=== PATIENT | male | born 1960 | race Asian ===

== ENCOUNTER 2017-02-09 12:49 | Inpatient (IN) | payer MEDICAID, OTHER ==
[~2017-02-09] VITALS: Ht 170.2 cm; Wt 72.6 kg
[~2017-02-09 12:49] MED LIST: COLACE100 MG ORAL; FUROSEMIDE20 M1 ORAL; LIBRIUM25 MG ORAL; NKM; NORVASC5 MG ORAL; PEPCID40 MG PO; PROZAC20 MG ORAL; VITAMIN B-1100 MG ORAL; ZOFRAN4 MG ORAL
[2017-02-09 12:56] VITALS: BP 158/107
--- NOTE | 2017-02-09 13:41 | Emergency Room Report ---
History of Present Illness General Chief Complaint: Alcohol Intoxication Source: Patient Present Illness HPI Patient was brought in by paramedics and police department Patient was found to be intoxicated also reports of doing cocaine Police Department that the patient was danger to himself and brought the patient in for further psychiatric evaluation However while here the patient requesting Dilaudid Reports that he has pancreatitis was drinking earlier and has increased pain at this time Denies any vomiting or diarrhea as any fevers or chills At this time denies any suicidal homicidal thoughts Allergies: Coded Allergies: No Known Allergies (Unverified , 10/25/14) Patient History Past Medical History: see triage record Pertinent Family History: none Reviewed Nursing Documentation: PMH: Agreed, PSxH: Agreed Nursing Documentation-PMH Past Medical History: No Stated History Hx Cardiac Problems: No Hx Cancer: No Hx Gastrointestinal Problems: Yes - Pancreatitis Hx Neurological Problems: No Review of Systems All Other Systems: negative except mentioned in HPI Physical Exam Vital Signs Date Time Temp Pulse Resp B/P (MAP) Pulse Ox O2 Delivery O2 Flow Rate FiO2 02/09/17 12:46 98.1 124 16 143/89 100 Room Air Sp02 EP Interpretation: reviewed, normal General Appearance: no apparent distress Head: normocephalic, atraumatic ENT: hearing grossly normal, normal pharynx Neck: supple Respiratory: lungs clear Cardiovascular #1: normal peripheral pulses, regular rate, rhythm Gastrointestinal: non tender - However the patient subjectively points diffusely in the upper abdomen and right upper quadrant, soft Genitourinary: no CVA tenderness Musculoskeletal: normal inspection Neurologic: alert, oriented x3, responsive - Patient has some slurring of his speech, which is possibly related to the alcohol ingestion Psychiatric: no suicidal/homicidal ideation Skin: no rash Lymphatic: no adenopathy Medical Decision Making ER Course Patient has baseline blood work initiated Evaluation for possible pancreatitis also initiated Patient signed out to my oncoming physician Dr. Reed for reevaluation and final disposition Last Vital Signs Date Time Temp Pulse Resp B/P (MAP) Pulse Ox O2 Delivery O2 Flow Rate FiO2 02/09/17 12:46 98.1 124 16 143/89 100 Room Air MELINDA MAIER D.O. Feb 09, 2017 13:41
[2017-02-09 13:54] LABS: HEMOGLOBIN 16.8 G/DL (14.2-18.0); MEAN CORPUSCULAR VOLUME 99 FL (80-99); PLATELET COUNT 86 K/UL (150-450); RED BLOOD COUNT 5.25 M/UL (4.70-6.10); RED CELL DISTRIBUTION WIDTH 12.9 % (11.6-14.8); WHITE BLOOD COUNT 8.7 K/UL (4.8-10.8)
[2017-02-09 14:10] LABS: ALANINE AMINOTRANSFERASE 94 U/L (12-78); ALBUMIN 3.7 G/DL (3.4-5.0); ALKALINE PHOSPHATASE 62 U/L (46-116); ANION GAP 24 mmol/L (5-15); ASPARTATE AMINO TRANSFERASE 257 U/L (15-37); BILIRUBIN,TOTAL 1.3 MG/DL (0.2-1.0); BLOOD UREA NITROGEN 22 mg/dL (7-18); CALCIUM 8.5 MG/DL (8.5-10.1); CARBON DIOXIDE 19 MMOL/L (21-32); CHLORIDE 95 MMOL/L (98-107); POTASSIUM 4.3 MMOL/L (3.5-5.1); SODIUM 138 MMOL/L (136-145)
[2017-02-09 14:16] LABS: BILIRUBIN,DIRECT 0.7 MG/DL (0.0-0.3)
[2017-02-09] MEDS ORDERED: TRAZODONE HCL150 MG ORAL (14:31)
--- NOTE | 2017-02-09 14:52 | Diagnostic Imaging Report ---
Indication: Dyspnea Comparison: None A single view chest radiograph was obtained. Findings: Mild basilar atelectasis versus scarring demonstrated. Aorta is ectatic. Heart size is normal. Bones are unremarkable. Impression: Linear densities likely atelectasis or scarring at the lung bases mild in degree
[2017-02-09 15:00] VITALS: BP 150/89
[2017-02-09] MEDS ORDERED: Morphine Sulfate 4mg/ml Inj IVP ONE (15:15)
[2017-02-09] MEDS ORDERED: Zolpidem 5mg tab ORAL PRN (16:45)
[2017-02-09] MEDS ORDERED: Mylanta II UD 30ml ORAL PRN (16:45)
[2017-02-09] MEDS ORDERED: Miralax 17gm pkt ORAL PRN (16:45)
[2017-02-09] MEDS ORDERED: chlordiazePOXIDE 25mg Cap ORAL PRN (16:45)
[2017-02-09] MEDS ORDERED: LORazepam Inj 2mg/ml 1ml IV PRN (16:45)
[2017-02-09 16:53] VITALS: BP 147/85
[2017-02-09] MEDS: Folic Acid 1 MG, Magnesium Sulfate 2,000 MG, Multivitamin - 12 Injection 10 ML in NS w/... IV SCH (17:48)
[2017-02-09] MEDS: Thiamine 100mg in D5W 55ml IVPB SCH (17:49)
[2017-02-09] MEDS ORDERED: Thiamine HCl 100 MG, Folic Acid 1 MG, Magnesium Sulfate 2,000 MG, Multivitamin - 12 Inj... IV SCH ×5 (18:00)
[2017-02-09 20:00] VITALS: BP 148/85
[2017-02-09] MEDS: Morphine Sulfate 4mg/ml Inj IVP PRN (20:34)
[2017-02-09] MEDS: TraZODone 50mg tab ORAL SCH (20:35)
[2017-02-09] MEDS ORDERED: Heparin 5000 units/ml inj SUBQ SCH (21:00)
[2017-02-10] VITALS: BP 159/91
[2017-02-10] MEDS: Morphine Sulfate 4mg/ml Inj IVP PRN ×6 (00:34→22:11)
--- NOTE | 2017-02-10 00:37 | Consultation ---
History of Present Illness General Date patient seen: Feb 09, 2017 Chief Complaint: Alcohol Intoxication Present Illness HPI the pt was intoxicated during the eval the pt was cracking jokes and started laughing when I asked if he was suicidal the pt was asking for morphine the pt was making inappropriate comments and was loud at time. i evaluated him in er Allergies: Coded Allergies: No Known Allergies (Unverified , 10/25/14) Medication History Scheduled Amlodipine Besylate (Norvasc), 5 MG ORAL DAILY, (Reported) Chlordiazepoxide (Chlordiazepoxide HCl), 25 MG ORAL Q6HR, (Reported) Docusate Sodium* (Colace*), 100 MG ORAL TWICE A DAY, (Reported) Fluoxetine Hcl* (Prozac*), 20 MG ORAL DAILY, (Reported) Furosemide* (Lasix*), 20 MG ORAL DAILY, (Reported) No Known Medications* (NKM - No Known Medications*), 0 ., (Reported) Thiamine Hcl* (Vitamin B-1*), 100 MG ORAL DAILY, (Reported) Trazodone* (Trazodone*), 50 MG ORAL BEDTIME, (Reported) Patient History History Provided By: Patient, Medical Record, PMD Healthcare decision maker Resuscitation status Full Code Advanced Directive on File Past Medical/Surgical History Past Medical/Surgical History: (1) Abdominal pain (2) ETOH abuse (3) Abdominal pain (4) etoh hepatitis (5) Abdominal pain (6) ETOH abuse (7) Elevated LFTs (8) Fatty liver (9) Acute alcoholic intoxication (10) Pancreatitis (11) ETOH abuse Review of Systems Psychiatric: Reports: prior hx, anxiety, emotional problems Physical Exam General Appearance: WD/WN, no apparent distress, alert, agitated, cachetic Neurologic: alert, oriented x 3, responsive, normal mood/affect Last 24 Hour Vital Signs Date Time Temp Pulse Resp B/P (MAP) Pulse Ox O2 Delivery O2 Flow Rate FiO2 02/09/17 20:00 97.5 116 21 148/85 97 Room Air 02/09/17 16:53 97.6 110 16 147/85 95 Room Air 02/09/17 16:53 98.0 110 16 147/85 95 Room Air 02/09/17 16:05 97.6 02/09/17 15:00 98.0 113 18 150/89 98 Room Air 02/09/17 12:56 98.1 127 18 158/107 95 Room Air 02/09/17 12:46 98.1 124 16 143/89 100 Room Air Laboratory Tests Test 02/09/17 13:30 02/09/17 13:35 White Blood Count 8.7 K/UL (4.8-10.8) Red Blood Count 5.25 M/UL (4.70-6.10) Hemoglobin 16.8 G/DL (14.2-18.0) Hematocrit 52.0 % (42.0-52.0) Mean Corpuscular Volume 99 FL (80-99) Mean Corpuscular Hemoglobin 32.0 PG (27.0-31.0) H Mean Corpuscular Hemoglobin Concent 32.3 G/DL (32.0-36.0) Red Cell Distribution Width 12.9 % (11.6-14.8) Platelet Count 86 K/UL (150-450) L Mean Platelet Volume 6.2 FL (6.5-10.1) L Neutrophils (%) (Auto) % (45.0-75.0) Lymphocytes (%) (Auto) % (20.0-45.0) Monocytes (%) (Auto) % (1.0-10.0) Eosinophils (%) (Auto) % (0.0-3.0) Basophils (%) (Auto) % (0.0-2.0) Differential Total Cells Counted 100 Neutrophils % (Manual) 88 % (45-75) H Lymphocytes % (Manual) 10 % (20-45) L Monocytes % (Manual) 2 % (1-10) Eosinophils % (Manual) 0 % (0-3) Basophils % (Manual) 0 % (0-2) Band Neutrophils 0 % (0-8) Platelet Estimate Decreased L Platelet Morphology Normal Red Blood Cell Morphology Normal Sodium Level 138 MMOL/L (136-145) Potassium Level 4.3 MMOL/L (3.5-5.1) Chloride Level 95 MMOL/L (98-107) L Carbon Dioxide Level 19 MMOL/L (21-32) L Anion Gap 24 mmol/L (5-15) H Blood Urea Nitrogen 22 mg/dL (7-18) H Creatinine 1.0 MG/DL (0.55-1.30) Estimat Glomerular Filtration Rate > 60 mL/min (>60) Glucose Level 132 MG/DL (74-106) H Calcium Level 8.5 MG/DL (8.5-10.1) Total Bilirubin 1.3 MG/DL (0.2-1.0) H Direct Bilirubin 0.7 MG/DL (0.0-0.3) H Aspartate Amino Transf (AST/SGOT) 257 U/L (15-37) H Alanine Aminotransferase (ALT/SGPT) 94 U/L (12-78) H Alkaline Phosphatase 62 U/L (46-116) Total Protein 7.4 G/DL (6.4-8.2) Albumin 3.7 G/DL (3.4-5.0) Globulin 3.7 g/dL Albumin/Globulin Ratio 1.0 (1.0-2.7) Lipase 633 U/L (73-393) H Salicylates Level 2.8 ug/mL (2.8-20) Acetaminophen Level < 2 MCG/ML (10-30) L Serum Alcohol 372 mg/dL Urine Opiates Screen Negative (NEGATIVE) Urine Barbiturates Screen Negative (NEGATIVE) Phencyclidine (PCP) Screen Negative (NEGATIVE) Urine Amphetamines Screen Negative (NEGATIVE) Urine Benzodiazepines Screen Positive (NEGATIVE) H Urine Cocaine Screen Negative (NEGATIVE) Urine Marijuana (THC) Screen Negative (NEGATIVE) Height (Feet): 5 Height (Inches): 7.00 Weight (Pounds): 160 Medications Current Medications Medications (Trade) Dose Ordered Sig/Sally Route PRN Reason Start Time Stop Time Status Last Admin Dose Admin Acetaminophen (Tylenol) 650 mg Q4H PRN ORAL fever 02/09/17 16:45 03/11/17 16:44 Al Hydroxide/Mg Hydroxide (Mylanta II) 30 ml Q6H PRN ORAL dyspepsia 02/09/17 16:45 03/11/17 16:44 Amlodipine Besylate (Norvasc) 5 mg DAILY ORAL 02/10/17 09:00 03/12/17 08:59 Chlordiazepoxide (Librium) 25 mg Q6H PRN ORAL Agitation 02/09/17 16:45 02/16/17 16:44 Dextrose (Dextrose 50%) STAT PRN IV Hypoglycemia 02/09/17 16:45 03/11/17 16:44 Fluoxetine HCl (PROzac) 20 mg DAILY ORAL 02/10/17 09:00 03/12/17 08:59 Folic Acid 1 mg/ Magnesium Sulfate 2000 mg/ Multivitamins 10 ml/Sodium Chloride 1,014.2 ml @ 124.876 mls/hr Q24H IV 02/09/17 18:00 03/11/17 17:59 02/09/17 17:48 Lorazepam (Ativan 2mg/ml 1ml) 2 mg Q1H PRN IV seizures 02/09/17 16:45 02/16/17 16:44 Morphine Sulfate (Morphine Sulfate) 4 mg Q4H PRN IVP For Pain 02/09/17 17:15 02/16/17 17:14 02/09/17 20:34 Ondansetron HCl (Zofran) 4 mg Q6H PRN IVP Nausea & Vomiting 02/09/17 16:45 03/11/17 16:44 02/09/17 18:31 Polyethylene Glycol (Miralax) 17 gm HSPRN PRN ORAL Constipation 02/09/17 16:45 03/11/17 16:44 Thiamine HCl 100 mg/Dextrose 56 ml @ 112 mls/hr Q24H IVPB 02/09/17 18:00 03/11/17 17:59 02/09/17 17:49 Trazodone HCl (Desyrel) 50 mg BEDTIME ORAL 02/09/17 21:00 03/11/17 20:59 02/09/17 20:35 Zolpidem Tartrate (Ambien) 5 mg HSPRN PRN ORAL Insomnia 02/09/17 16:45 02/16/17 16:44 Assessment/Plan Status: progressing Assessment/Plan alcohol depencence -the pts presentation is in rosendo context of alcohol -will reassess tomorrow -Yolie Rubi M.D. Feb 10, 2017 00:37
[2017-02-10 04:00] VITALS: BP 151/81
[2017-02-10 07:00] LABS: HEMATOCRIT 39.8 % (42.0-52.0); HEMOGLOBIN 13.8 G/DL (14.2-18.0); MEAN CORPUSCULAR VOLUME 96 FL (80-99); PLATELET COUNT 49 K/UL (150-450); RED BLOOD COUNT 4.14 M/UL (4.70-6.10); RED CELL DISTRIBUTION WIDTH 12.8 % (11.6-14.8); WHITE BLOOD COUNT 5.5 K/UL (4.8-10.8)
[2017-02-10 07:10] LABS: ALANINE AMINOTRANSFERASE 72 U/L (12-78); ALBUMIN 3.2 G/DL (3.4-5.0); ALBUMIN/GLOBULIN RATIO 1.1 (1.0-2.7); ALKALINE PHOSPHATASE 51 U/L (46-116); ANION GAP 5 mmol/L (5-15); ASPARTATE AMINO TRANSFERASE 140 U/L (15-37); BILIRUBIN,TOTAL 1.6 MG/DL (0.2-1.0); BLOOD UREA NITROGEN 16 mg/dL (7-18); CALCIUM 7.9 MG/DL (8.5-10.1); CARBON DIOXIDE 32 MMOL/L (21-32); CHLORIDE 100 MMOL/L (98-107); CREATININE 0.8 MG/DL (0.55-1.30); POTASSIUM 4.6 MMOL/L (3.5-5.1); SODIUM 137 MMOL/L (136-145)
[2017-02-10 07:17] LABS: BILIRUBIN,DIRECT 0.7 MG/DL (0.0-0.3)
[2017-02-10 08:15] VITALS: BP 167/102
[2017-02-10] MEDS: Promethazine/Codeine 5ml UD ORAL PRN ×2 (11:14→19:52)
--- NOTE | 2017-02-10 11:33 | GI Initial Consult Note ---
History of Present Illness General Date patient seen: Feb 10, 2017 Time patient seen: 11:24 Reason for Hospitalization: Alcohol Intoxication Referring physician: GUERO PICHARDO Reason for Consultation: ALCOHOLIC PANCREATITIS Present Illness HPI Patient was brought in by paramedics and police department Patient was found to be intoxicated also reports of doing cocaine Police Department that the patient was danger to himself and brought the patient in for further psychiatric evaluation However while here the patient requesting Dilaudid Reports that he has pancreatitis was drinking earlier and has increased pain at this time Denies any vomiting or diarrhea as any fevers or chills At this time denies any suicidal homicidal thoughts GI consulted for pancreatitis. HPI as noted above. Pt seen on floor, awake A& Ox4 noted with tremors and dry coughing. Per the patient, he has history of ETOH abuse drinks appromixately 4 pints daily x 30 days on his last binge. Pt states he has had an addiction for over 3 years due to his personal life problems. He presents today with low platelets, transaminitis, elevated lipase and elevated serum alcohol levels 372. No history of endoscopic/colonoscopy. Home Meds Reported Medications Trazodone* (TRAZODONE*) 150 Mg Tablet, 50 MG ORAL BEDTIME, TAB 02/09/17 Thiamine Hcl* (VITAMIN B-1*) 100 Mg Tablet, 100 MG ORAL DAILY, TAB 0 Refills 11/20/14 Fluoxetine Hcl* (PROZAC*) 20 Mg Capsule, 20 MG ORAL DAILY, CAP 11/20/14 Amlodipine Besylate (Norvasc) 5 Mg Tab, 5 MG ORAL DAILY, TAB 11/20/14 Furosemide* (LASIX*) 20 Mg Tablet, 20 MG ORAL DAILY, TAB 11/20/14 Docusate Sodium* (COLACE*) 100 Mg Capsule, 100 MG ORAL TWICE A DAY, CAP 11/20/14 Chlordiazepoxide (Chlordiazepoxide HCl) 25 Mg Cap, 25 MG ORAL Q6HR, #15 CAP 0 Refills 11/20/14 No Known Medications* (NKM - No Known Medications*) ., 0 ., 0 Refills 10/25/14 Med list reviewed/reconciled: Yes Allergies: Coded Allergies: No Known Allergies (Unverified , 10/25/14) Patient History History Provided By: Patient PMH Narrative Past Medical History: see triage record Pertinent Family History: none Reviewed Nursing Documentation: PMH: Agreed, PSxH: Agreed Nursing Documentation-PMH Past Medical History: No Stated History Hx Cardiac Problems: No Hx Cancer: No Hx Gastrointestinal Problems: Yes - Pancreatitis Hx Neurological Problems: No Social History: Reports: alcohol use Review of Systems All Other Systems: negative except mentioned in HPI Physical Exam Vital Signs Date Time Temp Pulse Resp B/P (MAP) Pulse Ox O2 Delivery O2 Flow Rate FiO2 02/09/17 12:46 98.1 124 16 143/89 100 Room Air Sp02 EP Interpretation: reviewed, normal Labs Laboratory Tests Test 02/09/17 13:30 02/09/17 13:35 02/10/17 06:20 02/10/17 11:00 White Blood Count 8.7 K/UL (4.8-10.8) 5.5 K/UL (4.8-10.8) Red Blood Count 5.25 M/UL (4.70-6.10) 4.14 M/UL (4.70-6.10) L Hemoglobin 16.8 G/DL (14.2-18.0) 13.8 G/DL (14.2-18.0) L Hematocrit 52.0 % (42.0-52.0) 39.8 % (42.0-52.0) L Mean Corpuscular Volume 99 FL (80-99) 96 FL (80-99) Mean Corpuscular Hemoglobin 32.0 PG (27.0-31.0) H 33.3 PG (27.0-31.0) H Mean Corpuscular Hemoglobin Concent 32.3 G/DL (32.0-36.0) 34.7 G/DL (32.0-36.0) Red Cell Distribution Width 12.9 % (11.6-14.8) 12.8 % (11.6-14.8) Platelet Count 86 K/UL (150-450) L 49 K/UL (150-450) L Mean Platelet Volume 6.2 FL (6.5-10.1) L 6.6 FL (6.5-10.1) Neutrophils (%) (Auto) % (45.0-75.0) % (45.0-75.0) Lymphocytes (%) (Auto) % (20.0-45.0) % (20.0-45.0) Monocytes (%) (Auto) % (1.0-10.0) % (1.0-10.0) Eosinophils (%) (Auto) % (0.0-3.0) % (0.0-3.0) Basophils (%) (Auto) % (0.0-2.0) % (0.0-2.0) Differential Total Cells Counted 100 100 Neutrophils % (Manual) 88 % (45-75) H 85 % (45-75) H Lymphocytes % (Manual) 10 % (20-45) L 8 % (20-45) L Monocytes % (Manual) 2 % (1-10) 6 % (1-10) Eosinophils % (Manual) 0 % (0-3) 0 % (0-3) Basophils % (Manual) 0 % (0-2) 0 % (0-2) Band Neutrophils 0 % (0-8) 1 % (0-8) Platelet Estimate Decreased L Decreased L Platelet Morphology Normal Normal Red Blood Cell Morphology Normal Normal Sodium Level 138 MMOL/L (136-145) 137 MMOL/L (136-145) Potassium Level 4.3 MMOL/L (3.5-5.1) 4.6 MMOL/L (3.5-5.1) Chloride Level 95 MMOL/L (98-107) L 100 MMOL/L (98-107) Carbon Dioxide Level 19 MMOL/L (21-32) L 32 MMOL/L (21-32) Anion Gap 24 mmol/L (5-15) H 5 mmol/L (5-15) Blood Urea Nitrogen 22 mg/dL (7-18) H 16 mg/dL (7-18) Creatinine 1.0 MG/DL (0.55-1.30) 0.8 MG/DL (0.55-1.30) Estimat Glomerular Filtration Rate > 60 mL/min (>60) > 60 mL/min (>60) Glucose Level 132 MG/DL (74-106) H 167 MG/DL (74-106) H Calcium Level 8.5 MG/DL (8.5-10.1) 7.9 MG/DL (8.5-10.1) L Total Bilirubin 1.3 MG/DL (0.2-1.0) H 1.6 MG/DL (0.2-1.0) H Direct Bilirubin 0.7 MG/DL (0.0-0.3) H 0.7 MG/DL (0.0-0.3) H Aspartate Amino Transf (AST/SGOT) 257 U/L (15-37) H 140 U/L (15-37) H Alanine Aminotransferase (ALT/SGPT) 94 U/L (12-78) H 72 U/L (12-78) Alkaline Phosphatase 62 U/L (46-116) 51 U/L (46-116) Total Protein 7.4 G/DL (6.4-8.2) 6.1 G/DL (6.4-8.2) L Albumin 3.7 G/DL (3.4-5.0) 3.2 G/DL (3.4-5.0) L Globulin 3.7 g/dL 2.9 g/dL Albumin/Globulin Ratio 1.0 (1.0-2.7) 1.1 (1.0-2.7) Lipase 633 U/L (73-393) H Salicylates Level 2.8 ug/mL (2.8-20) Acetaminophen Level < 2 MCG/ML (10-30) L Serum Alcohol 372 mg/dL Urine Opiates Screen Negative (NEGATIVE) Urine Barbiturates Screen Negative (NEGATIVE) Phencyclidine (PCP) Screen Negative (NEGATIVE) Urine Amphetamines Screen Negative (NEGATIVE) Urine Benzodiazepines Screen Positive (NEGATIVE) H Urine Cocaine Screen Negative (NEGATIVE) Urine Marijuana (THC) Screen Negative (NEGATIVE) Prothrombin Time Pending Prothromb Time International Ratio Pending Activated Partial Thromboplast Time Pending General Appearance: well appearing, no apparent distress, alert Head: normocephalic EENT: PERRL/EOMI, normal ENT inspection Neck: supple Respiratory: normal breath sounds, no respiratory distress Cardiovascular: normal rate Gastrointestinal: normal inspection, non tender, soft, normal bowel sounds, non -distended Rectal: deferred Genitourinary: deferred Musculoskeletal: normal inspection, back normal Neurologic: normal inspection, alert, oriented x3, responsive Psychiatric: normal inspection, judgement/insight normal, memory normal Skin: normal inspection, normal color, no rash, warm/dry, palpation normal, well hydrated Lymphatic: normal inspection, no adenopathy Current Medications Current Medications Medications (Trade) Dose Ordered Sig/Sally Route PRN Reason Start Time Stop Time Status Last Admin Dose Admin Acetaminophen (Tylenol) 650 mg Q4H PRN ORAL fever 02/09/17 16:45 03/11/17 16:44 Al Hydroxide/Mg Hydroxide (Mylanta II) 30 ml Q6H PRN ORAL dyspepsia 02/09/17 16:45 03/11/17 16:44 Amlodipine Besylate (Norvasc) 5 mg DAILY ORAL 02/10/17 09:00 03/12/17 08:59 02/10/17 08:23 Chlordiazepoxide (Librium) 25 mg Q6H PRN ORAL Agitation 02/09/17 16:45 02/16/17 16:44 02/10/17 10:05 Dextrose (Dextrose 50%) STAT PRN IV Hypoglycemia 02/09/17 16:45 03/11/17 16:44 Fluoxetine HCl (PROzac) 20 mg DAILY ORAL 02/10/17 09:00 03/12/17 08:59 02/10/17 08:23 Folic Acid 1 mg/ Magnesium Sulfate 2000 mg/ Multivitamins 10 ml/Sodium Chloride 1,014.2 ml @ 124.876 mls/hr Q24H IV 02/09/17 18:00 03/11/17 17:59 02/09/17 17:48 Lorazepam (Ativan 2mg/ml 1ml) 2 mg Q1H PRN IV seizures 02/09/17 16:45 02/16/17 16:44 Morphine Sulfate (Morphine Sulfate) 4 mg Q4H PRN IVP For Pain 02/09/17 17:15 02/16/17 17:14 02/10/17 08:50 Ondansetron HCl (Zofran) 4 mg Q6H PRN IVP Nausea & Vomiting 02/09/17 16:45 03/11/17 16:44 02/10/17 07:10 Polyethylene Glycol (Miralax) 17 gm HSPRN PRN ORAL Constipation 02/09/17 16:45 03/11/17 16:44 Promethazine HCl/ Codeine (Phenergan with Codeine) 5 ml Q4H PRN ORAL For Cough 02/10/17 10:45 03/12/17 10:44 02/10/17 11:14 Thiamine HCl 100 mg/Dextrose 56 ml @ 112 mls/hr Q24H IVPB 02/09/17 18:00 03/11/17 17:59 02/09/17 17:49 Trazodone HCl (Desyrel) 50 mg BEDTIME ORAL 02/09/17 21:00 03/11/17 20:59 02/09/17 20:35 Zolpidem Tartrate (Ambien) 5 mg HSPRN PRN ORAL Insomnia 02/09/17 16:45 02/16/17 16:44 GI: Plan Problems: (1) Alcoholic pancreatitis (2) Abdominal pain (3) ETOH abuse (4) Acute alcoholic intoxication (5) Pancreatitis (6) etoh hepatitis Plan supportive care adv diet as tolerated, on regular banana bag + IV hydration pain mgmt ETOH withdrawal mgmt >> ativan/librium prn ordered abdominal U/S Phenergan prn ppi repeat lipase fu labs Discussed with Dr. Carrillo. Thank you for this patient referral, we will follow. Stephanie Hicks N.P. Feb 10, 2017 11:33
[2017-02-10 12:15] VITALS: BP 161/96
--- NOTE | 2017-02-10 15:17 | General Progress Note ---
Assessment/Plan Status: stable, progressing Assessment/Plan alcohol dependence alcohol withdrawal anxiety d/o -cont current meds -the pt is not at imminent dts -the pt is going to benefit from inpatient drug rehab Subjective Neurologic/Psychiatric: Reports: anxiety, emotional problems Allergies: Coded Allergies: No Known Allergies (Unverified , 10/25/14) Subjective the pt is calmer today denied that he had an attempt to end his life. the pt is calm and cooperative the pt is not ready to stop drinking. i did recommend inpatient drug rehab Objective Last 24 Hour Vital Signs Date Time Temp Pulse Resp B/P (MAP) Pulse Ox O2 Delivery O2 Flow Rate FiO2 02/10/17 12:15 97.9 91 22 161/96 95 Room Air 02/10/17 09:20 98.1 02/10/17 08:23 100 136/88 02/10/17 08:15 98.8 94 22 167/102 94 Room Air 02/10/17 04:00 98.1 108 20 151/81 95 Room Air 02/10/17 00:00 98.1 117 21 159/91 92 Room Air 02/09/17 20:00 97.5 116 21 148/85 97 Room Air 02/09/17 16:53 97.6 110 16 147/85 95 Room Air 02/09/17 16:53 98.0 110 16 147/85 95 Room Air 02/09/17 16:05 97.6 Intake and Output 02/10/17 02/11/17 19:00 07:00 Intake Total 480 ml Balance 480 ml Intake Oral 480 ml Laboratory Tests 02/10/17 06:20: White Blood Count 5.5, Red Blood Count 4.14L, Hemoglobin 13.8L, Hematocrit 39.8L , Mean Corpuscular Volume 96, Mean Corpuscular Hemoglobin 33.3H, Mean Corpuscular Hemoglobin Concent 34.7, Red Cell Distribution Width 12.8, Platelet Count 49L, Mean Platelet Volume 6.6, Neutrophils (%) (Auto) , Lymphocytes (%) ( Auto) , Monocytes (%) (Auto) , Eosinophils (%) (Auto) , Basophils (%) (Auto) , Differential Total Cells Counted 100, Neutrophils % (Manual) 85H, Lymphocytes % (Manual) 8L, Monocytes % (Manual) 6, Eosinophils % (Manual) 0, Basophils % ( Manual) 0, Band Neutrophils 1, Platelet Estimate DecreasedL, Platelet Morphology Normal, Red Blood Cell Morphology Normal, Sodium Level 137, Potassium Level 4.6, Chloride Level 100, Carbon Dioxide Level 32, Anion Gap 5, Blood Urea Nitrogen 16, Creatinine 0.8, Estimat Glomerular Filtration Rate > 60 , Glucose Level 167H, Calcium Level 7.9L, Total Bilirubin 1.6H, Direct Bilirubin 0.7H, Aspartate Amino Transf (AST/SGOT) 140H, Alanine Aminotransferase (ALT/SGPT) 72, Alkaline Phosphatase 51, Total Protein 6.1L, Albumin 3.2L, Globulin 2.9, Albumin/Globulin Ratio 1.1 02/10/17 11:00: Prothrombin Time 10.2, Prothromb Time International Ratio 1.0, Activated Partial Thromboplast Time 28 Height (Feet): 5 Height (Inches): 7.00 Weight (Pounds): 160 General Appearance: WD/WN, no apparent distress, thin Neurologic: alert, oriented x 3, responsive, depressed affect Yolie Shaw M.D. Feb 10, 2017 15:17
--- NOTE | 2017-02-10 15:34 | History and Physical ---
History of Present Illness General Date patient seen: Feb 09, 2017 Reason for Hospitalization: Alcohol Intoxication Present Illness HPI 56 year old male with hx of ETOH abuse was brought in by paramedics and police department. He was found to be intoxicated also reports of doing cocaine Pt had severe abdominal pain and nauseas and vomiting. He was diagnosed to have ETOH pancreatitis and admitted for further management. Allergies: Coded Allergies: No Known Allergies (Unverified , 10/25/14) Medication History Scheduled Amlodipine Besylate (Norvasc), 5 MG ORAL DAILY, (Reported) Chlordiazepoxide (Chlordiazepoxide HCl), 25 MG ORAL Q6HR, (Reported) Docusate Sodium* (Colace*), 100 MG ORAL TWICE A DAY, (Reported) Fluoxetine Hcl* (Prozac*), 20 MG ORAL DAILY, (Reported) Furosemide* (Lasix*), 20 MG ORAL DAILY, (Reported) No Known Medications* (NKM - No Known Medications*), 0 ., (Reported) Thiamine Hcl* (Vitamin B-1*), 100 MG ORAL DAILY, (Reported) Trazodone* (Trazodone*), 50 MG ORAL BEDTIME, (Reported) Patient History Healthcare decision maker Resuscitation status Full Code Advanced Directive on File Past Medical/Surgical History Past Medical/Surgical History: (1) ETOH abuse Review of Systems Constitutional: Reports: no symptoms, malaise, weakness Respiratory: Reports: shortness of breath, sputum Physical Exam General Appearance: WD/WN Lines, tubes and drains: peripheral HEENT: normocephalic, atraumatic Respiratory/Chest: chest wall non-tender, lungs clear Cardiovascular/Chest: normal peripheral pulses, normal rate Abdomen: normal bowel sounds, non tender Genitourinary/Rectal: normal genital exam, heme negative stool Last 24 Hour Vital Signs Date Time Temp Pulse Resp B/P (MAP) Pulse Ox O2 Delivery O2 Flow Rate FiO2 02/10/17 12:15 97.9 91 22 161/96 95 Room Air 02/10/17 09:20 98.1 02/10/17 08:23 100 136/88 02/10/17 08:15 98.8 94 22 167/102 94 Room Air 02/10/17 04:00 98.1 108 20 151/81 95 Room Air 02/10/17 00:00 98.1 117 21 159/91 92 Room Air 02/09/17 20:00 97.5 116 21 148/85 97 Room Air 02/09/17 16:53 97.6 110 16 147/85 95 Room Air 02/09/17 16:53 98.0 110 16 147/85 95 Room Air 02/09/17 16:05 97.6 Intake and Output 02/10/17 02/11/17 19:00 07:00 Intake Total 480 ml Balance 480 ml Intake Oral 480 ml Laboratory Tests Test 02/10/17 06:20 02/10/17 11:00 White Blood Count 5.5 K/UL (4.8-10.8) Red Blood Count 4.14 M/UL (4.70-6.10) L Hemoglobin 13.8 G/DL (14.2-18.0) L Hematocrit 39.8 % (42.0-52.0) L Mean Corpuscular Volume 96 FL (80-99) Mean Corpuscular Hemoglobin 33.3 PG (27.0-31.0) H Mean Corpuscular Hemoglobin Concent 34.7 G/DL (32.0-36.0) Red Cell Distribution Width 12.8 % (11.6-14.8) Platelet Count 49 K/UL (150-450) L Mean Platelet Volume 6.6 FL (6.5-10.1) Neutrophils (%) (Auto) % (45.0-75.0) Lymphocytes (%) (Auto) % (20.0-45.0) Monocytes (%) (Auto) % (1.0-10.0) Eosinophils (%) (Auto) % (0.0-3.0) Basophils (%) (Auto) % (0.0-2.0) Differential Total Cells Counted 100 Neutrophils % (Manual) 85 % (45-75) H Lymphocytes % (Manual) 8 % (20-45) L Monocytes % (Manual) 6 % (1-10) Eosinophils % (Manual) 0 % (0-3) Basophils % (Manual) 0 % (0-2) Band Neutrophils 1 % (0-8) Platelet Estimate Decreased L Platelet Morphology Normal Red Blood Cell Morphology Normal Sodium Level 137 MMOL/L (136-145) Potassium Level 4.6 MMOL/L (3.5-5.1) Chloride Level 100 MMOL/L (98-107) Carbon Dioxide Level 32 MMOL/L (21-32) Anion Gap 5 mmol/L (5-15) Blood Urea Nitrogen 16 mg/dL (7-18) Creatinine 0.8 MG/DL (0.55-1.30) Estimat Glomerular Filtration Rate > 60 mL/min (>60) Glucose Level 167 MG/DL (74-106) H Calcium Level 7.9 MG/DL (8.5-10.1) L Total Bilirubin 1.6 MG/DL (0.2-1.0) H Direct Bilirubin 0.7 MG/DL (0.0-0.3) H Aspartate Amino Transf (AST/SGOT) 140 U/L (15-37) H Alanine Aminotransferase (ALT/SGPT) 72 U/L (12-78) Alkaline Phosphatase 51 U/L (46-116) Total Protein 6.1 G/DL (6.4-8.2) L Albumin 3.2 G/DL (3.4-5.0) L Globulin 2.9 g/dL Albumin/Globulin Ratio 1.1 (1.0-2.7) Prothrombin Time 10.2 SEC (9.30-11.50) Prothromb Time International Ratio 1.0 (0.9-1.1) Activated Partial Thromboplast Time 28 SEC (23-33) Height (Feet): 5 Height (Inches): 7.00 Weight (Pounds): 160 Medications Current Medications Medications (Trade) Dose Ordered Sig/Sally Route PRN Reason Start Time Stop Time Status Last Admin Dose Admin Acetaminophen (Tylenol) 650 mg Q4H PRN ORAL fever 02/09/17 16:45 03/11/17 16:44 Al Hydroxide/Mg Hydroxide (Mylanta II) 30 ml Q6H PRN ORAL dyspepsia 02/09/17 16:45 03/11/17 16:44 Amlodipine Besylate (Norvasc) 5 mg DAILY ORAL 02/10/17 09:00 03/12/17 08:59 02/10/17 08:23 Chlordiazepoxide (Librium) 25 mg Q6H PRN ORAL Agitation 02/10/17 16:00 02/17/17 15:59 Dextrose (Dextrose 50%) STAT PRN IV Hypoglycemia 02/09/17 16:45 03/11/17 16:44 Fluoxetine HCl (PROzac) 20 mg DAILY ORAL 02/10/17 09:00 03/12/17 08:59 02/10/17 08:23 Folic Acid 1 mg/ Magnesium Sulfate 2000 mg/ Multivitamins 10 ml/Sodium Chloride 1,014.2 ml @ 124.876 mls/hr Q24H IV 02/09/17 18:00 03/11/17 17:59 02/09/17 17:48 Lorazepam (Ativan 2mg/ml 1ml) 2 mg Q1H PRN IV seizures 02/09/17 16:45 02/16/17 16:44 Morphine Sulfate (Morphine Sulfate) 4 mg Q4H PRN IVP For Pain 02/09/17 17:15 02/16/17 17:14 02/10/17 13:38 Ondansetron HCl (Zofran) 4 mg Q6H PRN IVP Nausea & Vomiting 02/09/17 16:45 03/11/17 16:44 02/10/17 07:10 Polyethylene Glycol (Miralax) 17 gm HSPRN PRN ORAL Constipation 02/09/17 16:45 03/11/17 16:44 Promethazine HCl/ Codeine (Phenergan with Codeine) 5 ml Q4H PRN ORAL For Cough 02/10/17 10:45 03/12/17 10:44 02/10/17 11:14 Thiamine HCl 100 mg/Dextrose 56 ml @ 112 mls/hr Q24H IVPB 02/09/17 18:00 03/11/17 17:59 02/09/17 17:49 Trazodone HCl (Desyrel) 50 mg BEDTIME ORAL 02/09/17 21:00 03/11/17 20:59 02/09/17 20:35 Zolpidem Tartrate (Ambien) 5 mg HSPRN PRN ORAL Insomnia 02/09/17 16:45 02/16/17 16:44 Assessment/Plan Problem List: (1) Pancreatitis ICD Codes: K85.9 - Acute pancreatitis, unspecified SNOMED: 64672378 (2) Acute alcoholic intoxication ICD Codes: F10.129 - Alcohol abuse with intoxication, unspecified SNOMED: 06632125 Assessment/Plan npo iv fluids GI evaluation f/u lipase and amylase level start diet when nausea is controlled. GUERO BATISTA Feb 10, 2017 15:34
--- NOTE | 2017-02-10 15:35 | Pulmonology Progress Note ---
Assessment/Plan Problems: (1) Pancreatitis (2) Acute alcoholic intoxication Assessment/Plan keep npo iv fluids GI evaluation appreciated f/u lipase and amylase level start diet when nausea is controlled. still nauseous Subjective ROS Limited/Unobtainable: No Constitutional: Reports: no symptoms HEENT: Repors: no symptoms Respiratory: Reports: no symptoms Allergies: Coded Allergies: No Known Allergies (Unverified , 10/25/14) Objective Last 24 Hour Vital Signs Date Time Temp Pulse Resp B/P (MAP) Pulse Ox O2 Delivery O2 Flow Rate FiO2 02/10/17 12:15 97.9 91 22 161/96 95 Room Air 02/10/17 09:20 98.1 02/10/17 08:23 100 136/88 02/10/17 08:15 98.8 94 22 167/102 94 Room Air 02/10/17 04:00 98.1 108 20 151/81 95 Room Air 02/10/17 00:00 98.1 117 21 159/91 92 Room Air 02/09/17 20:00 97.5 116 21 148/85 97 Room Air 02/09/17 16:53 97.6 110 16 147/85 95 Room Air 02/09/17 16:53 98.0 110 16 147/85 95 Room Air 02/09/17 16:05 97.6 Intake and Output 02/10/17 02/11/17 19:00 07:00 Intake Total 480 ml Balance 480 ml Intake Oral 480 ml General Appearance: WD/WN HEENT: normocephalic Respiratory/Chest: chest wall non-tender, lungs clear Cardiovascular: normal peripheral pulses, regularly irregular Abdomen: normal bowel sounds, soft, non tender Extremities: no cyanosis Skin: no rash Laboratory Tests 02/10/17 06:20: White Blood Count 5.5, Red Blood Count 4.14L, Hemoglobin 13.8L, Hematocrit 39.8L , Mean Corpuscular Volume 96, Mean Corpuscular Hemoglobin 33.3H, Mean Corpuscular Hemoglobin Concent 34.7, Red Cell Distribution Width 12.8, Platelet Count 49L, Mean Platelet Volume 6.6, Neutrophils (%) (Auto) , Lymphocytes (%) ( Auto) , Monocytes (%) (Auto) , Eosinophils (%) (Auto) , Basophils (%) (Auto) , Differential Total Cells Counted 100, Neutrophils % (Manual) 85H, Lymphocytes % (Manual) 8L, Monocytes % (Manual) 6, Eosinophils % (Manual) 0, Basophils % ( Manual) 0, Band Neutrophils 1, Platelet Estimate DecreasedL, Platelet Morphology Normal, Red Blood Cell Morphology Normal, Sodium Level 137, Potassium Level 4.6, Chloride Level 100, Carbon Dioxide Level 32, Anion Gap 5, Blood Urea Nitrogen 16, Creatinine 0.8, Estimat Glomerular Filtration Rate > 60 , Glucose Level 167H, Calcium Level 7.9L, Total Bilirubin 1.6H, Direct Bilirubin 0.7H, Aspartate Amino Transf (AST/SGOT) 140H, Alanine Aminotransferase (ALT/SGPT) 72, Alkaline Phosphatase 51, Total Protein 6.1L, Albumin 3.2L, Globulin 2.9, Albumin/Globulin Ratio 1.1 02/10/17 11:00: Prothrombin Time 10.2, Prothromb Time International Ratio 1.0, Activated Partial Thromboplast Time 28 Current Medications Medications (Trade) Dose Ordered Sig/Sally Route PRN Reason Start Time Stop Time Status Last Admin Dose Admin Acetaminophen (Tylenol) 650 mg Q4H PRN ORAL fever 02/09/17 16:45 03/11/17 16:44 Al Hydroxide/Mg Hydroxide (Mylanta II) 30 ml Q6H PRN ORAL dyspepsia 02/09/17 16:45 03/11/17 16:44 Amlodipine Besylate (Norvasc) 5 mg DAILY ORAL 02/10/17 09:00 03/12/17 08:59 02/10/17 08:23 Chlordiazepoxide (Librium) 25 mg Q6H PRN ORAL Agitation 02/10/17 16:00 02/17/17 15:59 Dextrose (Dextrose 50%) STAT PRN IV Hypoglycemia 02/09/17 16:45 03/11/17 16:44 Fluoxetine HCl (PROzac) 20 mg DAILY ORAL 02/10/17 09:00 03/12/17 08:59 02/10/17 08:23 Folic Acid 1 mg/ Magnesium Sulfate 2000 mg/ Multivitamins 10 ml/Sodium Chloride 1,014.2 ml @ 124.876 mls/hr Q24H IV 02/09/17 18:00 03/11/17 17:59 02/09/17 17:48 Lorazepam (Ativan 2mg/ml 1ml) 2 mg Q1H PRN IV seizures 02/09/17 16:45 02/16/17 16:44 Morphine Sulfate (Morphine Sulfate) 4 mg Q4H PRN IVP For Pain 02/09/17 17:15 02/16/17 17:14 02/10/17 13:38 Ondansetron HCl (Zofran) 4 mg Q6H PRN IVP Nausea & Vomiting 02/09/17 16:45 03/11/17 16:44 02/10/17 07:10 Polyethylene Glycol (Miralax) 17 gm HSPRN PRN ORAL Constipation 02/09/17 16:45 03/11/17 16:44 Promethazine HCl/ Codeine (Phenergan with Codeine) 5 ml Q4H PRN ORAL For Cough 02/10/17 10:45 03/12/17 10:44 02/10/17 11:14 Thiamine HCl 100 mg/Dextrose 56 ml @ 112 mls/hr Q24H IVPB 02/09/17 18:00 03/11/17 17:59 02/09/17 17:49 Trazodone HCl (Desyrel) 50 mg BEDTIME ORAL 02/09/17 21:00 03/11/17 20:59 02/09/17 20:35 Zolpidem Tartrate (Ambien) 5 mg HSPRN PRN ORAL Insomnia 02/09/17 16:45 02/16/17 16:44 GUERO BATISTA Feb 10, 2017 15:35
[2017-02-10 16:00] VITALS: BP 158/91
[2017-02-10] MEDS ORDERED: chlordiazePOXIDE 25mg Cap ORAL PRN (16:00)
--- NOTE | 2017-02-10 16:38 | Cardiology Report ---
APPROVED REPORT EKG Measurement Heart [id number] 146P-15 [id number] Sinus tachycardia Otherwise normal ECG
--- NOTE | 2017-02-10 16:38 | Cardiology Report ---
APPROVED REPORT EKG Measurement Heart [id number] [place] 146P-15 [id number] Sinus tachycardia Otherwise normal ECG
--- NOTE | 2017-02-10 16:38 | Cardiology Report ---
APPROVED REPORT EKG Measurement Heart [id number] 146P-15 [id number] Sinus tachycardia Otherwise normal ECG
[2017-02-10] MEDS: Folic Acid 1 MG, Magnesium Sulfate 2,000 MG, Multivitamin - 12 Injection 10 ML in NS w/... IV SCH (17:52)
[2017-02-10] MEDS: Thiamine 100mg in D5W 55ml IVPB SCH (17:53)
[2017-02-10] MEDS: LR 1000ml 1,000 ML IV SCH (19:45)
[2017-02-10] MEDS: TraZODone 50mg tab ORAL SCH (19:53)
[2017-02-10 20:00] VITALS: BP 158/92
[2017-02-11 00:26] VITALS: BP 149/88
[2017-02-11] MEDS: LR 1000ml 1,000 ML IV SCH ×2 (02:25→09:42)
[2017-02-11 04:00] VITALS: BP 152/86
[2017-02-11] MEDS: Morphine Sulfate 4mg/ml Inj IVP PRN ×2 (04:37→13:39)
[2017-02-11 08:00] VITALS: BP 135/88
--- NOTE | 2017-02-11 11:17 | GI Progress Note ---
Assessment/Plan Problems: (1) Alcoholic pancreatitis ICD Codes: K85.20 - Alcohol induced acute pancreatitis without necrosis or infection SNOMED: 325779524 (2) etoh hepatitis (3) Elevated LFTs ICD Codes: R79.89 - Elevated LFTs SNOMED: 313755951 (4) ETOH abuse ICD Codes: F10.10 - Alcohol abuse, uncomplicated SNOMED: 97155601 (5) Abdominal pain ICD Codes: R10.9 - Unspecified abdominal pain SNOMED: 67747595 (6) Acute alcoholic intoxication ICD Codes: F10.129 - Alcohol abuse with intoxication, unspecified SNOMED: 53960454 (7) Pancreatitis ICD Codes: K85.9 - Acute pancreatitis, unspecified SNOMED: 61640628 Status: stable, progressing Status Narrative Discussed with Dr. Carrillo. Assessment/Plan supportive care low sodium diet, progressing banana bag + IV hydration, LR @ 150 x 1 day pain mgmt ETOH withdrawal mgmt >> ativan/librium prn fu abdominal U/S Phenergan prn ppi repeat lipase fu labs dc planning Subjective Subjective feels better generally wants to smoke, refused nicotine patch able to eat a little Objective Last 24 Hour Vital Signs Date Time Temp Pulse Resp B/P (MAP) Pulse Ox O2 Delivery O2 Flow Rate FiO2 02/11/17 08:10 100 152/86 02/11/17 08:00 98.6 89 17 135/88 95 Room Air 02/11/17 04:00 98.9 100 18 152/86 97 Room Air 02/11/17 00:26 98.0 94 18 149/88 96 Room Air 02/10/17 20:00 98.3 96 18 158/92 96 Room Air 02/10/17 18:22 97.9 02/10/17 16:00 98.0 95 22 158/91 95 Room Air 02/10/17 12:15 97.9 91 22 161/96 95 Room Air Intake and Output 02/11/17 02/12/17 19:00 07:00 Intake Total 450 ml Balance 450 ml IV Total 450 ml Height (Feet): 5 Height (Inches): 7.00 Weight (Pounds): 160 General Appearance: WD/WN, no apparent distress, alert Cardiovascular: normal rate Respiratory/Chest: normal breath sounds, no respiratory distress Abdominal Exam: normal bowel sounds, non tender, soft Extremities: normal range of motion, non-tender Stephanie Hicks N.P. Feb 11, 2017 11:17
--- NOTE | 2017-02-11 11:17 | GI Progress Note ---
Assessment/Plan Problems: (1) Alcoholic pancreatitis ICD Codes: K85.20 - Alcohol induced acute pancreatitis without necrosis or infection SNOMED: 995310482 (2) etoh hepatitis (3) Elevated LFTs ICD Codes: R79.89 - Elevated LFTs SNOMED: 995279247 (4) ETOH abuse ICD Codes: F10.10 - Alcohol abuse, uncomplicated SNOMED: 89266359 (5) Abdominal pain ICD Codes: R10.9 - Unspecified abdominal pain SNOMED: 93771691 (6) Acute alcoholic intoxication ICD Codes: F10.129 - Alcohol abuse with intoxication, unspecified SNOMED: 13560702 (7) Pancreatitis ICD Codes: K85.9 - Acute pancreatitis, unspecified SNOMED: 77999809 Status: stable, progressing Status Narrative Discussed with Dr. Carrillo. Assessment/Plan supportive care low sodium diet, progressing banana bag + IV hydration, LR @ 150 x 1 day pain mgmt ETOH withdrawal mgmt >> ativan/librium prn fu abdominal U/S Phenergan prn ppi repeat lipase fu labs dc planning Subjective Subjective feels better generally wants to smoke, refused nicotine patch able to eat a little Objective Last 24 Hour Vital Signs Date Time Temp Pulse Resp B/P (MAP) Pulse Ox O2 Delivery O2 Flow Rate FiO2 02/11/17 08:10 100 152/86 02/11/17 08:00 98.6 89 17 135/88 95 Room Air 02/11/17 04:00 98.9 100 18 152/86 97 Room Air 02/11/17 00:26 98.0 94 18 149/88 96 Room Air 02/10/17 20:00 98.3 96 18 158/92 96 Room Air 02/10/17 18:22 97.9 02/10/17 16:00 98.0 95 22 158/91 95 Room Air 02/10/17 12:15 97.9 91 22 161/96 95 Room Air Intake and Output 02/11/17 02/12/17 19:00 07:00 Intake Total 450 ml Balance 450 ml IV Total 450 ml Height (Feet): 5 Height (Inches): 7.00 Weight (Pounds): 160 General Appearance: WD/WN, no apparent distress, alert Cardiovascular: normal rate Respiratory/Chest: normal breath sounds, no respiratory distress Abdominal Exam: normal bowel sounds, non tender, soft Extremities: normal range of motion, non-tender Stephanie Hicks N.P. Feb 11, 2017 11:17
--- NOTE | 2017-02-11 11:17 | GI Progress Note ---
Assessment/Plan Problems: (1) Alcoholic pancreatitis ICD Codes: K85.20 - Alcohol induced acute pancreatitis without necrosis or infection SNOMED: 440138198 (2) etoh hepatitis (3) Elevated LFTs ICD Codes: R79.89 - Elevated LFTs SNOMED: 990614934 (4) ETOH abuse ICD Codes: F10.10 - Alcohol abuse, uncomplicated SNOMED: 13924025 (5) Abdominal pain ICD Codes: R10.9 - Unspecified abdominal pain SNOMED: 35551747 (6) Acute alcoholic intoxication ICD Codes: F10.129 - Alcohol abuse with intoxication, unspecified SNOMED: 60758239 (7) Pancreatitis ICD Codes: K85.9 - Acute pancreatitis, unspecified SNOMED: 04302096 Status: stable, progressing Status Narrative Discussed with Dr. Carrillo. Assessment/Plan supportive care low sodium diet, progressing banana bag + IV hydration, LR @ 150 x 1 day pain mgmt ETOH withdrawal mgmt >> ativan/librium prn fu abdominal U/S Phenergan prn ppi repeat lipase fu labs dc planning Subjective Subjective feels better generally wants to smoke, refused nicotine patch able to eat a little Objective Last 24 Hour Vital Signs Date Time Temp Pulse Resp B/P (MAP) Pulse Ox O2 Delivery O2 Flow Rate FiO2 02/11/17 08:10 100 152/86 02/11/17 08:00 98.6 89 17 135/88 95 Room Air 02/11/17 04:00 98.9 100 18 152/86 97 Room Air 02/11/17 00:26 98.0 94 18 149/88 96 Room Air 02/10/17 20:00 98.3 96 18 158/92 96 Room Air 02/10/17 18:22 97.9 02/10/17 16:00 98.0 95 22 158/91 95 Room Air 02/10/17 12:15 97.9 91 22 161/96 95 Room Air Intake and Output 02/11/17 02/12/17 19:00 07:00 Intake Total 450 ml Balance 450 ml IV Total 450 ml Height (Feet): 5 Height (Inches): 7.00 Weight (Pounds): 160 General Appearance: WD/WN, no apparent distress, alert Cardiovascular: normal rate Respiratory/Chest: normal breath sounds, no respiratory distress Abdominal Exam: normal bowel sounds, non tender, soft Extremities: normal range of motion, non-tender Stephanie Hicks N.P. Feb 11, 2017 11:17
[2017-02-11 12:00] VITALS: BP 129/98
[2017-02-11 13:33] LABS: HEMATOCRIT 41.6 % (42.0-52.0); HEMOGLOBIN 14.4 G/DL (14.2-18.0); MEAN CORPUSCULAR VOLUME 96 FL (80-99); PLATELET COUNT 36 K/UL (150-450); RED BLOOD COUNT 4.34 M/UL (4.70-6.10); RED CELL DISTRIBUTION WIDTH 12.4 % (11.6-14.8); WHITE BLOOD COUNT 3.1 K/UL (4.8-10.8)
[2017-02-11 13:44] LABS: ALANINE AMINOTRANSFERASE 65 U/L (12-78); ALBUMIN 3.1 G/DL (3.4-5.0); ALKALINE PHOSPHATASE 55 U/L (46-116); ANION GAP 5 mmol/L (5-15); ASPARTATE AMINO TRANSFERASE 117 U/L (15-37); BILIRUBIN,TOTAL 1.5 MG/DL (0.2-1.0); BLOOD UREA NITROGEN 8 mg/dL (7-18); CALCIUM 7.9 MG/DL (8.5-10.1); CARBON DIOXIDE 32 MMOL/L (21-32); CHLORIDE 95 MMOL/L (98-107); CREATININE 0.7 MG/DL (0.55-1.30); POTASSIUM 3.5 MMOL/L (3.5-5.1); SODIUM 132 MMOL/L (136-145)
[2017-02-11 13:50] LABS: BILIRUBIN,DIRECT 0.7 MG/DL (0.0-0.3)
--- NOTE | 2017-02-11 15:06 | Pulmonology Progress Note ---
Assessment/Plan Problems: (1) Pancreatitis (2) Acute alcoholic intoxication Assessment/Plan tolerating diet off IV flfuids GI evaluation appreciated dc home Subjective ROS Limited/Unobtainable: No Constitutional: Reports: no symptoms HEENT: Repors: no symptoms Respiratory: Reports: no symptoms Allergies: Coded Allergies: No Known Allergies (Unverified , 10/25/14) Objective Last 24 Hour Vital Signs Date Time Temp Pulse Resp B/P (MAP) Pulse Ox O2 Delivery O2 Flow Rate FiO2 02/11/17 12:00 98.1 96 17 129/98 98 Room Air 02/11/17 08:10 100 152/86 02/11/17 08:00 98.6 89 17 135/88 95 Room Air 02/11/17 04:00 98.9 100 18 152/86 97 Room Air 02/11/17 00:26 98.0 94 18 149/88 96 Room Air 02/10/17 20:00 98.3 96 18 158/92 96 Room Air 02/10/17 18:22 97.9 02/10/17 16:00 98.0 95 22 158/91 95 Room Air Intake and Output 02/11/17 02/12/17 19:00 07:00 Intake Total 750 ml Balance 750 ml IV Total 750 ml General Appearance: WD/WN HEENT: normocephalic, anicteric Respiratory/Chest: chest wall non-tender, lungs clear Cardiovascular: normal peripheral pulses, normal rate Abdomen: normal bowel sounds, no organomegaly Extremities: no cyanosis Skin: no rash, no lesions Laboratory Tests 02/11/17 13:20: White Blood Count 3.1L, Red Blood Count 4.34L, Hemoglobin 14.4, Hematocrit 41.6L , Mean Corpuscular Volume 96, Mean Corpuscular Hemoglobin 33.3H, Mean Corpuscular Hemoglobin Concent 34.7, Red Cell Distribution Width 12.4, Platelet Count 36L, Mean Platelet Volume 8.1, Neutrophils (%) (Auto) , Lymphocytes (%) ( Auto) , Monocytes (%) (Auto) , Eosinophils (%) (Auto) , Basophils (%) (Auto) , Differential Total Cells Counted 100, Neutrophils % (Manual) 58, Lymphocytes % ( Manual) 26, Monocytes % (Manual) 12H, Eosinophils % (Manual) 2, Basophils % ( Manual) 2, Band Neutrophils 0, Platelet Estimate DecreasedL, Platelet Morphology Normal, Red Blood Cell Morphology Normal, Sodium Level 132L, Potassium Level 3.5, Chloride Level 95L, Carbon Dioxide Level 32, Anion Gap 5, Blood Urea Nitrogen 8, Creatinine 0.7, Estimat Glomerular Filtration Rate > 60, Glucose Level 138H, Calcium Level 7.9L, Total Bilirubin 1.5H, Direct Bilirubin 0.7H, Aspartate Amino Transf (AST/SGOT) 117H, Alanine Aminotransferase (ALT/SGPT ) 65, Alkaline Phosphatase 55, Total Protein 6.1L, Albumin 3.1L, Globulin 3.0, Albumin/Globulin Ratio 1.0, Lipase 468H Current Medications Medications (Trade) Dose Ordered Sig/Sally Route PRN Reason Start Time Stop Time Status Last Admin Dose Admin Acetaminophen (Tylenol) 650 mg Q4H PRN ORAL fever 02/09/17 16:45 03/11/17 16:44 Al Hydroxide/Mg Hydroxide (Mylanta II) 30 ml Q6H PRN ORAL dyspepsia 02/09/17 16:45 03/11/17 16:44 Amlodipine Besylate (Norvasc) 5 mg DAILY ORAL 02/10/17 09:00 03/12/17 08:59 02/11/17 08:10 Chlordiazepoxide (Librium) 25 mg Q6H PRN ORAL Agitation 02/10/17 16:00 02/17/17 15:59 Dextrose (Dextrose 50%) STAT PRN IV Hypoglycemia 02/09/17 16:45 03/11/17 16:44 Fluoxetine HCl (PROzac) 20 mg DAILY ORAL 02/10/17 09:00 03/12/17 08:59 02/11/17 08:10 Folic Acid 1 mg/ Magnesium Sulfate 2000 mg/ Multivitamins 10 ml/Sodium Chloride 1,014.2 ml @ 124.876 mls/hr Q24H IV 02/09/17 18:00 03/11/17 17:59 02/10/17 17:52 Lorazepam (Ativan 2mg/ml 1ml) 2 mg Q1H PRN IV seizures 02/09/17 16:45 02/16/17 16:44 02/11/17 08:11 Morphine Sulfate (Morphine Sulfate) 4 mg Q4H PRN IVP For Pain 02/09/17 17:15 02/16/17 17:14 02/11/17 13:39 Ondansetron HCl (Zofran) 4 mg Q6H PRN IVP Nausea & Vomiting 02/09/17 16:45 03/11/17 16:44 02/10/17 07:10 Polyethylene Glycol (Miralax) 17 gm HSPRN PRN ORAL Constipation 02/09/17 16:45 03/11/17 16:44 Promethazine HCl/ Codeine (Phenergan with Codeine) 5 ml Q4H PRN ORAL For Cough 02/10/17 10:45 03/12/17 10:44 02/10/17 19:52 Thiamine HCl 100 mg/Dextrose 56 ml @ 112 mls/hr Q24H IVPB 02/09/17 18:00 03/11/17 17:59 02/10/17 17:53 Trazodone HCl (Desyrel) 50 mg BEDTIME ORAL 02/09/17 21:00 03/11/17 20:59 02/10/17 19:53 Zolpidem Tartrate (Ambien) 5 mg HSPRN PRN ORAL Insomnia 02/09/17 16:45 02/16/17 16:44 GUERO BATISTA Feb 11, 2017 15:06
[2017-02-11 16:00] VITALS: BP 152/90
[2017-02-11] MEDS ORDERED: Tubing IV Secondary IV ONE (16:29)
--- NOTE | 2017-02-12 11:25 | Diagnostic Imaging Report ---
Indication:Elevated liver function tests. History of pancreatitis Technique: Grayscale and duplex Doppler imaging of the abdomen performed. Comparison: None Findings: The liver is slightly heterogeneous in appearance and may be slightly echogenic. Also noted. Sonographic Hinds's is negative per technologist. CBD is 10-15 mm which is dilated. Kidneys are unremarkable bilaterally. There is no hydronephrosis. Pancreas is poorly seen on this study. Spleen is normal in size. There is a cyst in the left kidney measuring 1.3 cm. 8 mm cyst in the right kidney noted. There is no ascites. Main portal vein is patent by Doppler. Impression: Dilated CBD. Further evaluation of this may be an indicated. Fatty liver. Gallstone. Renal cysts
[2017-02-12] MEDS ORDERED: PROZAC20 MG ORAL (12:32)
[2017-02-12] MEDS ORDERED: AMLODIPINE BESYL5 MG ORAL (12:32)
[2017-02-12] MEDS ORDERED: IBUPROFEN600 MG ORAL (12:32)
[2017-02-12] MEDS ORDERED: ZOFRAN4 M3 ORAL (12:32)
--- NOTE | 2017-02-13 18:00 | Discharge Summary 2 SIG ---
DATE OF ADMISSION: 02/09/2017 DATE OF DISCHARGE: 02/11/2017 CONSULTANTS: 1. William Carrillo M.D. 2. Yolie Shaw M.D. BRIEF HOSPITAL COURSE: The patient is a 56-year-old male with history of ETOH abuse, was brought in by paramedics and Police Department. He was found to be intoxicated and also reported doing cocaine. He had severe abdominal pain with nausea and vomiting. The patient was danger to himself and was brought to the hospital for further psychiatric evaluation. He admitted he was drinking alcohol and had increase in abdominal pain. On evaluation at ED, lipase and LFTs were elevated. He was admitted to medical floor for acute pancreatitis. He was given aggressive IV resuscitation and was placed on banana bag with thiamine and folic acid. He was given Librium for ETOH withdrawal. Lipase was monitored. He underwent abdominal ultrasound. Findings showed dilated CBD with fatty liver and gallstones. Lipase down trended. He underwent psychiatric evaluation and was diagnosed to have anxiety disorder and alcohol dependence. He was initially provided with one-to-one sitter, however, was discontinued as the patient does not appear to be in danger to self and was recommended inpatient drug rehab. Social Service was called in and the patient was eventually discharged home. FINAL DIAGNOSES: 1. Acute pancreatitis. 2. Acute alcoholic intoxication. 3. Ethanol abuse. 4. Ethanol hepatitis. 5. Alcohol dependence with alcohol withdrawal. 6. Anxiety disorder. DISPOSITION: The patient was discharged home. DISCHARGE MEDICATIONS: Refer to med list. DISCHARGE INSTRUCTIONS: The patient was advised to follow up with PMD in a week and follow up with drug rehab program. Elsa Mitchell M.D. I have been assigned to dictate discharge summary on this account and I was not involved in the patient's management. Ashlyn Ladd N.P. DR: JOHNNY JOB#: [id number] CC: VIVIEN
== END 2017-02-11 16:30 | disposition home or self-care (01) | DRG 282 ==
LOC: EDBD 12:49 → EMR 14:30 → 4E 14:39 → EDBEDREQ 16:16 → 3E 02-10 12:30 → UNDODISIN 02-10 16:30
DX: K85.20 Alcohol induced acute pancreatitis without necrosis or infection (principal); K70.10 Alcoholic hepatitis without ascites; K70.0 Alcoholic fatty liver; F10.239 Alcohol dependence with withdrawal, unspecified; Y90.8 Blood alcohol level of 240 mg/100 ml or more; F10.229 Alcohol dependence with intoxication, unspecified; F41.9 Anxiety disorder, unspecified; K80.80 Other cholelithiasis without obstruction
CPT/HCPCS: 36415; 71010; 76700; 80053; 80307; 80329; 82248; 83690; 85007; 85025; 85610; 85730; 93005; 99285; J2405

== ENCOUNTER 2017-02-12 12:04 | Emergency (ER) | payer MEDICAID ==
[~2017-02-12] VITALS: Ht 170.2 cm; Wt 72.6 kg
[~2017-02-12 12:04] MED LIST changes: +TRAZODONE HCL150 MG ORAL
[2017-02-12] MEDS ORDERED: ZOFRAN4 M3 ORAL (12:32)
[2017-02-12] MEDS ORDERED: IBUPROFEN600 MG ORAL (12:32)
[2017-02-12] MEDS ORDERED: AMLODIPINE BESYL5 MG ORAL (12:32)
[2017-02-12] MEDS ORDERED: PROZAC20 MG ORAL (12:32)
[2017-02-12 12:39] VITALS: BP 108/75
--- NOTE | 2017-02-12 13:35 | Emergency Room Report ---
History of Present Illness General Chief Complaint: Medication Refill Source: Patient, Medical Record Present Illness HPI The patient is a 56-year-old male presenting for medication refill. He states that he was admitted to this hospital and discharged yesterday for alcohol induced pancreatitis. He states that he did not receive his medications including amlodipine and Prozac. He states he does not have a primary doctor at this time. He has had hypertension and depression for several years. He denies any symptoms at this time including N, V, F, chills, SOB, CP, VELEZ, dizziness Allergies: Coded Allergies: No Known Allergies (Unverified , 10/25/14) Patient History Past Medical History: see triage record Pertinent Family History: none Reviewed Nursing Documentation: PMH: Agreed, PSxH: Agreed Nursing Documentation-PMH Past Medical History: No History, Except For Hx Cardiac Problems: No Hx Cancer: No Hx Gastrointestinal Problems: Yes Hx Neurological Problems: Yes - Insomnia Review of Systems All Other Systems: negative except mentioned in HPI Physical Exam Vital Signs Date Time Temp Pulse Resp B/P (MAP) Pulse Ox O2 Delivery O2 Flow Rate FiO2 02/12/17 12:17 97.9 99 18 118/87 98 Room Air Sp02 EP Interpretation: reviewed, normal General Appearance: no apparent distress, alert, GCS 15, non-toxic Head: normocephalic, atraumatic Eyes: bilateral eye normal inspection, bilateral eye PERRL ENT: hearing grossly normal, normal pharynx, no angioedema, normal voice Neck: full range of motion, supple/symm/no masses Respiratory: chest non-tender, lungs clear, normal breath sounds, speaking full sentences Cardiovascular #1: regular rate, rhythm, no edema Musculoskeletal: back normal, gait/station normal, normal range of motion, non- tender, calf tenderness Neurologic: alert, oriented x3, responsive, motor strength/tone normal, sensory intact, speech normal Skin: normal color, no rash, warm/dry, well hydrated Medical Decision Making PA Attestation Dr. Mills is my supervising physician. Patient management was discussed with my supervising physician Diagnostic Impression: Primary Impression: Alcohol abuse Additional Impression: Encounter for medication refill ER Course The patient is a 56-year-old male presenting for medication refill DDx considered but not limited to: pancreatitis, alcohol abuse, HTN, depression , among others PE: No apparent distress. A&Ox4 PERRL. EOMI. Normal mentation. RRR. No MRG Lungs CTA bilat Abdomen: Normal appearance. Non distended. No ecchymosis. Normal BS. Non TTP. No McBurney point tenderness. No guarding. Skin is warm and dry, no rashes. The patient is given his medication refills and will follow up with primary doctor. ER precautions given Last Vital Signs Date Time Temp Pulse Resp B/P (MAP) Pulse Ox O2 Delivery O2 Flow Rate FiO2 02/12/17 12:39 97.9 87 17 108/75 98 Room Air Status: improved Disposition: HOME, SELF-CARE Condition: Improved Scripts Ibuprofen* (MOTRIN*) 600 Mg Tablet 600 MG ORAL Q8H Y for For Pain, #30 TAB 0 Refills Prov: ARNEL MURILLO P.A. 02/12/17 Amlodipine Besylate* (AMLODIPINE BESYLATE*) 5 Mg Tablet 5 MG ORAL DAILY, #30 TAB Prov: ARNEL MURILLO P.A. 02/12/17 Ondansetron* (ZOFRAN*) 4 Mg Tablet 4 MG ORAL Q6H Y for Nausea & Vomiting, #10 TAB Prov: ALEXANDRANARNEL P.A. 02/12/17 Fluoxetine Hcl* (PROZAC*) 20 Mg Capsule 20 MG ORAL DAILY, #30 CAP Prov: ALEXANDRANARNEL P.A. 02/12/17 Referrals: NOT CHOSEN IPA/MD,REFERRING (PCP) Patient Instructions: Alcohol Use Disorder, Medicine Refill at the Emergency Department Additional Instructions: I discussed my findings with the patient. All questions and concerns have been answered. Treatment and medication compliance have been addressed. I advised the patient that they need to follow up with PMD in 3-5 days. Return to ED if symptoms worsen, new symptoms arise, or if needed for any reason. Patient verbalized understanding of discharge instructions. ARNEL MURILLO Feb 12, 2017 13:35
[2017-02-13] MEDS ORDERED: LORAZEPAM1 MG ORAL (13:46)
== END 2017-02-12 12:39 | disposition home or self-care (01) ==
LOC: EMR 12:36
DX: Z76.0 Encounter for issue of repeat prescription (principal); F10.10 Alcohol abuse, uncomplicated; G47.00 Insomnia, unspecified
CPT/HCPCS: 99281

== ENCOUNTER 2017-02-13 11:43 | Emergency (ER) | payer MEDICAID ==
[~2017-02-13] VITALS: Ht 170.2 cm; Wt 72.6 kg
[~2017-02-13 11:43] MED LIST changes: +AMLODIPINE BESYL5 MG ORAL; +IBUPROFEN600 MG ORAL; +ZOFRAN4 M3 ORAL
[2017-02-13 12:23] VITALS: BP 125/88
[2017-02-13 12:54] LABS: HEMATOCRIT 47.5 % (42.0-52.0); HEMOGLOBIN 16.2 G/DL (14.2-18.0); MEAN CORPUSCULAR VOLUME 95 FL (80-99); PLATELET COUNT 84 K/UL (150-450); RED CELL DISTRIBUTION WIDTH 11.8 % (11.6-14.8); WHITE BLOOD COUNT 4.6 K/UL (4.8-10.8)
[2017-02-13 13:06] LABS: ANION GAP 11 mmol/L (5-15); BLOOD UREA NITROGEN 13 mg/dL (7-18); CALCIUM 8.4 MG/DL (8.5-10.1); CARBON DIOXIDE 28 MMOL/L (21-32); CHLORIDE 93 MMOL/L (98-107); CREATININE 0.7 MG/DL (0.55-1.30); POTASSIUM 3.2 MMOL/L (3.5-5.1); SODIUM 132 MMOL/L (136-145)
[2017-02-13 13:19] LABS: ALANINE AMINOTRANSFERASE 101 U/L (12-78); ALBUMIN 3.6 G/DL (3.4-5.0); ALKALINE PHOSPHATASE 61 U/L (46-116); ASPARTATE AMINO TRANSFERASE 184 U/L (15-37); BILIRUBIN,TOTAL 1.6 MG/DL (0.2-1.0)
[2017-02-13 13:38] LABS: BILIRUBIN,DIRECT 0.5 MG/DL (0.0-0.3)
[2017-02-13] MEDS ORDERED: LORazepam 1mg tab ORAL ONE (13:45)
[2017-02-13] MEDS ORDERED: LORAZEPAM1 MG ORAL (13:46)
[2017-02-13 14:01] VITALS: BP 138/92
--- NOTE | 2017-02-13 14:02 | Emergency Room Report ---
History of Present Illness General Chief Complaint: Abdominal Pain Source: Patient Present Illness HPI Patient present with complaints of mid abdominal pain Denies any vomiting denies any chest pain or shortness of breath Patient reports that he was called by Dr prater office and told to return to the emergency room he was not sure why Speaking to Dr. Prater he reports that he did not speak to the patient were called the patient At this time patient denies any vomiting or diarrhea Denies any fevers or chills Patient requesting oral pain medication for his pancreatitis Allergies: Coded Allergies: No Known Allergies (Unverified , 10/25/14) Patient History Past Medical History: see triage record Pertinent Family History: none Reviewed Nursing Documentation: PMH: Agreed, PSxH: Agreed Nursing Documentation-PMH Past Medical History: No History, Except For Hx Cardiac Problems: No Hx Hypertension: Yes Hx Pacemaker: No Hx Asthma: No Hx COPD: No Hx Diabetes: No Hx Cancer: No Hx Gastrointestinal Problems: Yes - Pancreatitis History Of Psychiatric Problem: Yes - Anxiety Hx Neurological Problems: Yes - Insomnia Hx Cerebrovascular Accident: No Hx Seizures: No Review of Systems All Other Systems: negative except mentioned in HPI Physical Exam Vital Signs Date Time Temp Pulse Resp B/P (MAP) Pulse Ox O2 Delivery O2 Flow Rate FiO2 02/13/17 11:56 98.1 114 20 125/88 97 Room Air Sp02 EP Interpretation: reviewed, normal General Appearance: well appearing, no apparent distress Head: normocephalic, atraumatic Eyes: bilateral eye PERRL, bilateral eye EOMI ENT: hearing grossly normal, normal pharynx, TMs + canals normal, uvula midline Neck: full range of motion, supple, no meningismus, no bony tend Respiratory: lungs clear, normal breath sounds, no rhonchi, no respiratory distress, no retraction, no accessory muscle use Cardiovascular #1: normal peripheral pulses, regular rate, rhythm, no edema, no gallop, no JVD, no murmur Gastrointestinal: normal bowel sounds, non tender, soft, no mass, no organomegaly, non-distended, no guarding, no hernia, no pulsatile mass, no rebound Genitourinary: no CVA tenderness Musculoskeletal: normal inspection Neurologic: oriented x3, responsive, 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, motor strength/ tone normal, sensory intact Psychiatric: mood/affect normal Skin: normal color, no rash, warm/dry, palpation normal Lymphatic: normal inspection, no adenopathy Medical Decision Making Diagnostic Impression: Primary Impression: Alcoholic pancreatitis ER Course With the history exam and presentation, multiple differentials considered, including but not limited to appendicitis, gastritis, cholecystitis, diverticulitis Patient has had a recent admission for pancreatitis blood work is repeated and shows similar findings to initial admission Patient is resting comfortably Hemodynamically stable At this time patient has history of alcohol disease likely exacerbating the pancreatitis Patient requesting Ativan since he stopped drinking alcohol He was provided with this medication and requires close outpatient followup Labs Test 02/13/17 12:04 White Blood Count 4.6 K/UL (4.8-10.8) Red Blood Count 5.00 M/UL (4.70-6.10) Hemoglobin 16.2 G/DL (14.2-18.0) Hematocrit 47.5 % (42.0-52.0) Mean Corpuscular Volume 95 FL (80-99) Mean Corpuscular Hemoglobin 32.5 PG (27.0-31.0) Mean Corpuscular Hemoglobin Concent 34.2 G/DL (32.0-36.0) Red Cell Distribution Width 11.8 % (11.6-14.8) Platelet Count 84 K/UL (150-450) Mean Platelet Volume 8.4 FL (6.5-10.1) Neutrophils (%) (Auto) % (45.0-75.0) Lymphocytes (%) (Auto) % (20.0-45.0) Monocytes (%) (Auto) % (1.0-10.0) Eosinophils (%) (Auto) % (0.0-3.0) Basophils (%) (Auto) % (0.0-2.0) Differential Total Cells Counted 100 Neutrophils % (Manual) 77 % (45-75) Lymphocytes % (Manual) 18 % (20-45) Monocytes % (Manual) 5 % (1-10) Eosinophils % (Manual) 0 % (0-3) Basophils % (Manual) 0 % (0-2) Band Neutrophils 0 % (0-8) Platelet Estimate Decreased Platelet Morphology Normal Sodium Level 132 MMOL/L (136-145) Potassium Level 3.2 MMOL/L (3.5-5.1) Chloride Level 93 MMOL/L (98-107) Carbon Dioxide Level 28 MMOL/L (21-32) Anion Gap 11 mmol/L (5-15) Blood Urea Nitrogen 13 mg/dL (7-18) Creatinine 0.7 MG/DL (0.55-1.30) Estimat Glomerular Filtration Rate > 60 mL/min (>60) Glucose Level 182 MG/DL (74-106) Calcium Level 8.4 MG/DL (8.5-10.1) Total Bilirubin 1.6 MG/DL (0.2-1.0) Direct Bilirubin 0.5 MG/DL (0.0-0.3) Aspartate Amino Transf (AST/SGOT) 184 U/L (15-37) Alanine Aminotransferase (ALT/SGPT) 101 U/L (12-78) Alkaline Phosphatase 61 U/L (46-116) Total Protein 7.1 G/DL (6.4-8.2) Albumin 3.6 G/DL (3.4-5.0) Globulin 3.5 g/dL Albumin/Globulin Ratio 1.0 (1.0-2.7) Lipase 752 U/L (73-393) Last Vital Signs Date Time Temp Pulse Resp B/P (MAP) Pulse Ox O2 Delivery O2 Flow Rate FiO2 02/13/17 12:23 98.1 20 125/88 97 Room Air 02/13/17 11:56 114 Status: improved Disposition: HOME, SELF-CARE Condition: Improved Scripts Lorazepam* (LORAZEPAM*) 1 Mg Tablet 1 MG ORAL THREE TIMES A DAY, #12 TAB Prov: MELINDA MAIER D.O. 02/13/17 Referrals: NOT CHOSEN IPA/MD,REFERRING (PCP) Patient Instructions: Alcohol Abuse and Nutrition, Acute Pancreatitis, Easy-to- Read, Abdominal Pain, Adult Additional Instructions: Patient is provided with the discharge instructions notified to follow up with primary doctor in the next 2-3 days otherwise return to the er with any worsening symptoms. Please note that this report is being documented using [employer] technology. This can lead to erroneous entry secondary to incorrect interpretation by the dictating instrument. MELINDA MAIER D.O. Feb 13, 2017 14:02
[2017-02-13 14:03] VITALS: BP 138/92
== END 2017-02-13 14:03 | disposition home or self-care (01) ==
LOC: EMR 12:41
DX: K85.90 Acute pancreatitis without necrosis or infection, unspecified (principal); I10 Essential (primary) hypertension; G47.00 Insomnia, unspecified; F41.9 Anxiety disorder, unspecified
CPT/HCPCS: 36415; 80053; 82248; 83690; 85007; 85025; 99283